=== PATIENT | female | born 1935 | race Caucasian/White ===

== ENCOUNTER 2019-06-21 09:41 | Inpatient (IN) | payer MEDICARE ==
[~2019-06-21] VITALS: Ht 160 cm; Wt 55.8 kg
--- NOTE | 2019-06-21 09:56 | NUR ---
PATIENT TO ROOM VIA EMS AND PHYSICIAN AT BEDSIDE FOR EVAL
--- NOTE | 2019-06-21 10:00 | NUR ---
PT REPORTS GENERALIZED WEAKNESSS AFTER STANDING UP FROM BED. PT AMBUALTED TO TABLE AND REMEMBERS WAKING UP ON THE FLOOR. PER EMS SYNCOPAL EPISODE. PT A&O X 4, SPEECH CLEAR. 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 PT REPORTS RIGHT SHOULDER PAIN, NO DEFORMITY NOTED. DECREASE IN ROM TO RIGHT SHOULDER. PERRLA. PER EMS PT HAS LACERATION TO BACK OF HEAD, DRESSING IN PLACE AND BLEEDING CONTROLLED. C-COLLAR IN PLACE. PT AND UPDATED ON PLAN OF CARE AND WAIT TIME. CALL MYERS WITHIN REACH.
[2019-06-21] MEDS ORDERED: ASPIRIN325 MG PO (10:10)
[2019-06-21] MEDS ORDERED: PROTONIX40 M2 PO (10:11)
[2019-06-21] MEDS ORDERED: CALCIUM + D PO (10:12)
[2019-06-21] MEDS ORDERED: VITAMIN C500 M6 PO (10:13)
[2019-06-21] MEDS ORDERED: NORVASC5 M1 PO (10:14)
[2019-06-21 10:18] LABS: HEMATOCRIT 40.4 % (37.0-47.0); HEMOGLOBIN 13.4 g/dl (12.0-16.0); IMMATURE GRANULOCYTES 1.1 % (0.0-5.0); MEAN CELL VOLUME 91.4 fL CALC (80.0-100.0); MEAN CORPUSCULAR HGB 30.3 pG CALC (26.0-32.0); MEAN CORPUSCULAR HGB CONC 33.2 g/L CALC (32.0-36.0); NEUT# 5.21 thou/uL (2.00-7.15); RED BLOOD COUNT 4.42 mill/uL (4.20-5.60); RED CELL DISTRI WIDTH 11.8 % (11.5-15.5)
[2019-06-21 10:40] LABS: ALBUMIN 3.8 g/dL (3.2-5.0); ALKALINE PHOSPHATASE 51 u/l (38-126); ANION GAP 15 (6-22 (CALC)); BILIRUBIN, TOTAL 0.7 mg/dL (0.0-1.4); BUN 13 mg/dL (8-23); BUN/CREATININE RATIO 21 (12-20 (CALC)); CARBON DIOXIDE 20 mmol/l (22-30); CHLORIDE 103 mmol/l (95-108); CREATININE 0.6 mg/dL (0.5-1.0); GFR > 60 ML/MIN (>=60 (CALC)); GFR FOR AFR.AMER. > 60 ML/MIN (>=60 (CALC)); POTASSIUM 4.5 mmol/l (3.5-5.1); SGOT/AST 29 u/l (9-36); SODIUM 134 mmol/l (137-146); TOTAL PROTEIN 6.9 g/dL (6.3-8.2)
[2019-06-21 10:51] LABS: MYOGLOBIN 60 ng/mL (0 - 62)
--- NOTE | 2019-06-21 10:55 | NUR ---
MD AT BEDSIDE, 1 CM LACERATION NOTED TO THE LEFT OCCI[ITAL AREA OF THE HEAD. PT A&O X 3 AND IS AWARE OF PLAN TO REPAIR LACERATION. VERISITE SIGNED. 2 GE PLACED TO BACK OF HEAD, PT TOLERATED WELL. LACERATION WELL APPROZIMATED. PT AWARE OF PLAN OF CARE AND WAIT TIME.
--- NOTE | 2019-06-21 11:20 | NUR ---
ORTHOSTATIC BP COMPLETED. PT DENIES ANY DIZZINESS UPON STANDING AND REPORTS PAIN TO RIGHT SHOULDER. CALL MYERS WITHIN REACH.
--- NOTE | 2019-06-21 12:00 | NUR ---
MEAL TRAY SERVED. PT DENIES ANY NEEDS AT THIS TIME.
--- NOTE | 2019-06-21 12:13 | NUR ---
SBAR PRINTED TO FLOOR
--- NOTE | 2019-06-21 12:30 | NUR ---
ASSITED PT UP TO BEDSIDE COMMODE. URINE SAMPLE COLLECTED. PT DENIES ANY DIZZINESS.
--- NOTE | 2019-06-21 12:59 | NUR ---
report to cristy montero.
--- NOTE | 2019-06-21 13:00 | NUR ---
REPORT RECEIVED FROM FRANCOIS FRANKEL.
--- NOTE | 2019-06-21 13:40 | NUR ---
PATIENT ASSISTED TO BSC AND BACK TO BED, PATIENT DENIES ANY DIZZINESS OR WEAKNESS. UP DATED ON WAIT TIME FOR TRANSPORT TO [place] AND TELE APPLIED. VERBAL UNDERSTANDING. WILL CONTINUE TO MONITOR.
--- NOTE | 2019-06-21 13:51 | NUR ---
REPORT CALLED TO WILFRID VIEIRA. WAITING ON ORDERS.
[2019-06-21 13:54] LABS: URINE BILIRUBIN - DIPSTICK NEGATIVE (NEGATIVE); URINE BLOOD DIPSTICK NEGATIVE (NEGATIVE); URINE COLOR YELLOW; URINE GLUCOSE - DIPSTICK NEGATIVE (NEGATIVE); URINE KETONE 15 mg/dL (NEGATIVE); URINE PH 6.5 (4.5-8.0); URINE PROTEIN - DIPSTICK NEGATIVE (NEG-TRACE); URINE SPECIFIC GRAVITY 1.015; URINE UROBILINOGEN - DIPSTICK 0.2 E.U./dL (0.2)
[2019-06-21 13:57] LABS: URINE LEUK ESTERASE SMALL (NEGATIVE); URINE NITRITE - DIPSTICK POSITIVE (Negative)
--- NOTE | 2019-06-21 14:10 | NUR ---
PATIENT TRANSPORTED TO [facility] VIA STRETCHER WITH TELE MONITOR IN PLACE. TOOTH GRINDER AT BEDSIDE. BELONGINGS SENT UP WITH PATIENT. CARE RELINQUISHED.
[2019-06-21 14:13] LABS: URINE BACTERIA MANY hpf; URINE SQUAMOUS EPITHELIAL CELL FEW EPI/hpf (0-FEW)
--- NOTE | 2019-06-21 14:16 | NUR ---
PT ARRIVED VIA STRETCHER WITH FAMILY AT BEDSIDE. ABLE TO AMBULATE TO THE BED, WITH STAND BY ASSIST.
[2019-06-21 14:20] VITALS: BP 164/81
--- NOTE | 2019-06-21 14:40 | NUR ---
ASSESSMENT IS COMPLETED: IV SITE IS FREE FROM REDNESS OR EDEMA. HR IS REG,PULSES ARE STRONG X4, ABD IS SOFT WITH ACTIVE BS. BREATH SOUNDS ARE CLEAR BILATERALLY. NO C/O SOB. PT HAS 2 GE ON THE LEFT SIDE OF HER HEAD FROM A FALL AT THE MOTEL. C/O R SHOULER PAIN. PER FAMILY PT WAS OUT APPROX 2 MINUTES. CONTINUE TO OBSERVE AND MONITOR.
--- NOTE | 2019-06-21 16:00 | NUR ---
PT IS RELAXING IN BED WITH NO DISTRESS NOTED. IV SITE IS FREE FROM REDNESS OR EDEMA.
[2019-06-21 18:41] VITALS: BP 160/76
--- NOTE | 2019-06-21 20:00 | NUR ---
PT IN LOW FOWLERS POSITION WATCHING TV W/ AT BEDSIDE. PT ASKING ABOUT HER KIDNEY FUNCTION STATING "MY KIDNEY HURTS." I CHECKED PT FOR BRUISIING TO LOWER RIGHT BACK, WHERE SHE POINTED TO WHERE THE DISCOMFORT IS. PHYSICIAN NOTIFIED OF URINE ANALYSIS RESULTS, REQUEST FOR TYLENOL FOR MILD PAIN BY PT AND ELEVATED BP. NEW ORDERS RECEIVED. POC AND RESULTS DISCUSSED W/PT AND MEDICATION EDUCATION. WILL FOLLOW-UP WITH FULL ASSESSMENT AND MEDICATE ORDERS PROVIDE AND NEEDS ARISE.
[2019-06-21 21:15] VITALS: BP 147/79
[2019-06-21 21:20] VITALS: BP 160/87
[2019-06-21 21:25] VITALS: BP 154/82
--- NOTE | 2019-06-21 21:25 | NUR ---
PT MEDICATED FOR MILD PAIN IN RIGHT LOWER BACK AND HEADACHE, PAIN REPORTED AT 4/10 ON PAIN SCALE. PT IS WATCHING AND LAUGHING AT THE TV AT THIS TIME. IS AT BEDSIDE. ORTHOSTATIC BP'S ASSESSED AT THIS TIME. 147/79 SUPINE, 160/87 SITTING, 154/82 STANDING. 02 SAT LEVELS RANGING FROM 89-95% ON RA, OXYGEN NC APPLIED AT THIS TIME PRN. WILL REASSESS.
--- NOTE | 2019-06-21 23:00 | NUR ---
ROLAND REYES AND SCD'S PLACED PER PHYSICIANS ORDER. PT WAS ATTEMPTING TO SLEEP, AWOKE TO OUR ENTERING ROOM. PT IS ASLEEP AT BEDSIDE ON ROLL-AWAY/ADDITIONAL BLANKETS AND PILLOWS PROVIDED. PT WAS EARLIER OFFERED DRINK/SNACK, DENIED NEED. APPLE SAUCE PROVIDED TO PT AND PO WATER TO SPOUSE. CALL LIGHT AT SIDE AND PT ENCOURAGED TO CALL NEEDS ARISE.
[2019-06-21 23:40] VITALS: BP 140/78
[2019-06-22] VITALS (9 sets, daily range): BP systolic 111–152; BP diastolic 68–80
--- NOTE | 2019-06-22 03:30 | NUR ---
ASSISTED PT TO RESTROOM AND BACK TO BED. PT DENIES ANY DIZZINESS UPON AMBULATING TO RESTROOM AND BACK TO THE BED. ASLEEP AT BEDSIDE. PT DENIES ANY OTHER NEEDS AT THIS TIME AND HAS BEEN ENCOURAGED TO CALL NEEDS ARISE.
[2019-06-22 06:43] LABS: HEMATOCRIT 39.3 % (37.0-47.0); IMMATURE GRANULOCYTES 0.3 % (0.0-5.0); MEAN CELL VOLUME 91.8 fL CALC (80.0-100.0); MEAN CORPUSCULAR HGB 30.4 pG CALC (26.0-32.0); MEAN CORPUSCULAR HGB CONC 33.1 g/L CALC (32.0-36.0); NEUT# 7.39 thou/uL (2.00-7.15); RED BLOOD COUNT 4.28 mill/uL (4.20-5.60); RED CELL DISTRI WIDTH 11.9 % (11.5-15.5)
[2019-06-22 06:56] LABS: ANION GAP 12 (6-22 (CALC)); BUN 10 mg/dL (8-23); BUN/CREATININE RATIO 18 (12-20 (CALC)); CHLORIDE 102 mmol/l (95-108); CREATININE 0.6 mg/dL (0.5-1.0); GFR > 60 ML/MIN (>=60 (CALC)); GFR FOR AFR.AMER. > 60 ML/MIN (>=60 (CALC)); SODIUM 135 mmol/l (137-146)
[2019-06-22 07:25] LABS: CARBON DIOXIDE 25 mmol/l (22-30)
--- NOTE | 2019-06-22 09:00 | NUR ---
ASSESSMENT IS COMPLETED: IV SITE IS FREE FROM REDNESS OR EDEMA. HR IS REG,PULSES ARE STRONG X4,ABD IS SOFT WITH ACTIVE BS. BREATH SOUNDS ARE CLEAR,BILATERALLY. CONTINUE TO OBSERVE AND MONITOR.
--- NOTE | 2019-06-22 12:49 | NUR ---
ORTHO BP COMPLETED: LYIN/72, SITTING :140/74, STANDIN/70
--- NOTE | 2019-06-22 12:50 | NUR ---
PT IS RELAXING IN BED FAMILY IN THE ROOM. IV SITE IS FREE FROM REDNESS OR EDEMA.
--- NOTE | 2019-06-22 16:50 | NUR ---
PT IS RELAXING IN BED WITH NO DISTRESS NOTED. IV SITE IS FREE FROM REDNESS OR EDEMA. CONTINUE TO OBSERVE AND MONITOR.
--- NOTE | 2019-06-22 19:35 | NUR ---
PT SITTING IN BED WITH AT BEDSIDE. A&O X3. NO DISTRESS NOTED. PT C/O OF RT SHOULDER PAIN 11/27. STATES SHE HAS NOT HAD MUCH OF AN APEPTITE TODAY. EXPRESSES CONCERNS ABOUT NOT HAVING A BM, EXPLAINED TO PT THAT WARM PRUNE JUICE WOULD BE GIVEN. PT VERBALIZED UNDERSTANDING. DISCUSSED POC. ASSESSMENT COMPLETED. CALL LIGHT IN REACH. CONTINUE TO MONITOR.
--- NOTE | 2019-06-22 22:30 | NUR ---
PT AMBULATING HALLWAY WITH AT SIDE.
[2019-06-23] VITALS (11 sets, daily range): BP systolic 108–149; BP diastolic 66–82
--- NOTE | 2019-06-23 01:40 | NUR ---
PT SLEEPING IN BED WITH AT BEDSIDE. NO DISTRESS NOTED. RESP EVEN AND UNLABORED. CONTINUE TO MONITOR.
[2019-06-23 05:23] LABS: HEMATOCRIT 39.1 % (37.0-47.0); HEMOGLOBIN 13.1 g/dl (12.0-16.0); MEAN CORPUSCULAR HGB 30.8 pG CALC (26.0-32.0); MEAN CORPUSCULAR HGB CONC 33.5 g/L CALC (32.0-36.0); RED BLOOD COUNT 4.25 mill/uL (4.20-5.60)
[2019-06-23 05:57] LABS: ANION GAP 14 (6-22 (CALC)); BUN 9 mg/dL (8-23); BUN/CREATININE RATIO 12 (12-20 (CALC)); CARBON DIOXIDE 24 mmol/l (22-30); CHLORIDE 100 mmol/l (95-108); CREATININE 0.7 mg/dL (0.5-1.0); GFR > 60 ML/MIN (>=60 (CALC)); GFR FOR AFR.AMER. > 60 ML/MIN (>=60 (CALC)); SODIUM 134 mmol/l (137-146)
--- NOTE | 2019-06-23 07:50 | NUR ---
PT IS SITTING ON THE SIDE OF THE BED WITH NO DISTRESS NOTED. IV SITE IS FREE FROM REDNESS OR EDMEA. HR IS REG,PULSES ARE STRONG X4, ABD IS SOFT WITH ACTIVE BS. TELE MONITOR IN PLACE. CONITNUE TO OBSERVE AND MONITOR.
--- NOTE | 2019-06-23 08:41 | NUR ---
ORTHO STATIC BP COMPLETED: 133/67,116/68,AND 145/75. NO C/O DIZZINESS NOTED.
--- NOTE | 2019-06-23 09:40 | NUR ---
PT TRANSPORTED TO HAVE AN US COMPLETED AND ECHO. VIA WC WITH STAFF.
--- NOTE | 2019-06-23 12:00 | NUR ---
PT IS RELAXING IN BED WITH NO DISTRESS NOTED. IV SITE IS FREE FROM REDNESS OR EDEMA.
--- NOTE | 2019-06-23 12:00 | NUR ---
SPOKE WITH GELACIO RODRIGUEZ RE: ORTHO
--- NOTE | 2019-06-23 16:17 | NUR ---
PT AMBULATING IN THE BASILIO WITH SPOUSE NO DISTRESS NOTED. CONTINUE TO OBSRVE AND MONITOR.
--- NOTE | 2019-06-23 16:40 | NUR ---
PT HAS BEEN AMBULATING IN THE BASILIO WITH SPOUSE. NO DISTRESS NTOED. IV SITE IS FREE FROM REDNESS OR EDEMA.
--- NOTE | 2019-06-23 20:00 | NUR ---
CHANGE OF SHIFT REPORT RECEIVED FROM ELI VIEIRA. PT IS ROOM, SITTING UP IN BED. CALL LIGHT WITHIN EASY REACH. PAIN MED WILL BE ADMINISTERED FOR COMPLAINT OF PAIN OF 7/10 PAIN. TYLENOL ADMINISTERED PER ORDER.
--- NOTE | 2019-06-23 21:30 | NUR ---
PATIENT STATES TYLENOL EFFECTIVE. WARM PRUNE JUICE OFFERED AND ACCEPTED BY PATIENT FOR COMPLAINT OF CONSTIPATION. VOCATIONAL COUNSELOR WILL CONTINUE TO MONITOR.
--- NOTE | 2019-06-24 | NUR ---
PATIENT RESTING COMFORTABLY. NO S/S OF DISTRESS. FRUIT LOADER WILL CONTINUE TO MONITOR
[2019-06-24 00:17] VITALS: BP 138/81
[2019-06-24 04:00] VITALS: BP 137/84
--- NOTE | 2019-06-24 04:00 | NUR ---
PT WAS GIVEN WARM PRUNE JUICE WITH GOOD EFFECT PT HAD A MODERATE SIZED BM. ORTHOSTATIC BP DONE WITH MARKED DIFFERENCE NOTED FROM LAYING TO SITTING TO STANDING. PT DENIES DIZZINESS. PT EDUCATED ON DANGLING HER FEET WHEN CHANGING POITION. PT EDUCATED ON CHANGING POSITION SLOWLY TO PREVENT FALLS.
[2019-06-24 04:01] VITALS: BP 110/78
[2019-06-24 04:02] VITALS: BP 86/56
--- NOTE | 2019-06-24 07:00 | NUR ---
SHIFT CHANGE REPORT, PT AWAKE ALERT AND ORIENTED RESTING IN BED, TELE MONITOR IN PLACE, C/O RIGHT SHOULDER PAIN, ALL CONCERNS ADDRESSED, CALL MYERS IN REACH.
--- NOTE | 2019-06-24 09:31 | NUR ---
PATIENT REPORTED PAIN ON R SHOULDER (PS 8/10) TODAY REQUIRING MIN-A WITH BED MOBILITY. SBA/CLOSE SUP WITH TRANSFERS FOM BED TO CHAIR USING WALKER. VERBAL CUES ON PROPER AND SAFE SEQUENCING, PATIENT PERFORMED GAIT TRAINING USING 2WW, SBA, 100 FEET, VERBAL CUES ON PROPER GAIT PATTERN. AMPAC = 16
[2019-06-24 09:34] VITALS: BP 133/77
[2019-06-24] MEDS ORDERED: TRAMADOL HCL50 MG PO (11:04)
[2019-06-24] MEDS ORDERED: BACTRIM DS1 TAB PO (11:04)
--- NOTE | 2019-06-24 11:18 | NUR ---
ADDENDUM: STRENGTHENING EXERCISE ON BLE IN SITTING POSITION. KNEE RAISES, KNEE FLEXION-EXTENSION, HIP ABDUCTION, AND ANKLE PF/DF X 10 REPS X 1 SET ON EACH MOTIONS. AMPAC = 16
--- NOTE | 2019-06-24 11:30 | NUR ---
MEDICAL TEAM ROUNDED AND DISCUSSED D/C PLANS WITH PT AND SPOUSE, BOTH STATED UNDERSTANDING, WILL CONTINUE TO MONITOR.
[2019-06-24 11:42] VITALS: BP 137/70
--- NOTE | 2019-06-24 14:05 | NUR ---
Discharge instructions given. Patient verbalizes understanding of same. Discharged in fair condition via Wheelchair to Home with spouse. All belongings sent with pt.
== END 2019-06-24 14:04 | disposition home health service (06) | DRG 690 ==
LOC: ED 09:41 → ED-I 12:00 → ED 12:10 → MS2 12:11
PROVIDERS: Emergency Medicine; Nurse Practitioner Family; ADMIT Internal Medicine; ATTEND Internal Medicine
PROC: 0HQ0XZZ Repair Scalp Skin, External Approach (ICD-10-PCS; principal; 2019-06-21)
DX: N30.00 Acute cystitis without hematuria (principal); I10 Essential (primary) hypertension; S01.01XA Laceration without foreign body of scalp, initial encounter; S40.011A Contusion of right shoulder, initial encounter; M48.00 Spinal stenosis, site unspecified; B96.20 Unspecified Escherichia coli [E. coli] as the cause of diseases classified elsewhere; W18.30XA Fall on same level, unspecified, initial encounter; Y92.009 Unspecified place in unspecified non-institutional (private) residence as the place of occurrence of the external cause; Z87.440 Personal history of urinary (tract) infections; Z86.73 Personal history of transient ischemic attack (TIA), and cerebral infarction without residual deficits
CPT/HCPCS: G0378